=== PATIENT | male | born 1935 | race Caucasian/White ===

== ENCOUNTER → 2017-11-23 | Day surgery (SDC) | payer MEDICARE ==
[2017-11-09 10:33] LABS: BASOPHILS # (AUTO) 0.1 (0.0-0.1); BASOPHILS % 0.5 % (0.0-1.0); EOSINOPHILS # (AUTO) 0.3 (0.0-0.4); EOSINOPHILS % 2.7 % (0.0-6.0); HEMATOCRIT 45.4 % (38.2-49.6); HEMOGLOBIN 15.6 g/dL (14.0-18.0); LYMPHOCYTES % 31.4 % (18.0-39.1); MEAN CORPUSCULAR HEMOGLOBIN 29.3 pg (28-32); MEAN CORPUSCULAR HGB CONC 34.4 g/dL (31-35); MEAN CORPUSCULAR VOLUME 85.3 fL (81-99); MONOCYTES # (AUTO) 0.7 (0.2-0.8); MONOCYTES % 7.6 % (4.4-11.3); NEUTROPHILS # (AUTO) 5.4 (2.1-6.9); NEUTROPHILS % 57.3 % (38.7-80.0); PLATELET COUNT 158 x10e3/uL (140-360); RED BLOOD COUNT 5.32 x10e6/uL (4.3-5.7); RED CELL DISTRIBUTION WIDTH 14.4 % (11.7-14.4)
--- NOTE | 2017-11-09 10:33 | Diagnostic Imaging Report ---
PROCEDURE: X-RAY CHEST, TWO VIEWS COMPARISON: None. INDICATIONS: PRE OPERATIVE FINGER SURGERY FINDINGS: LUNGS: No consolidations or edema. There is linear scarring in the left lung base. PLEURA: No effusions or pneumothorax. HEART \T\ MEDIASTINUM: The heart is within normal size-limits. Aortic calcification. BONES \T\ SOFT TISSUES: Mild degenerative changes of the spine. Mid thoracic spine compression deformity. CONCLUSION: No acute thoracic abnormality. Ortiz Tinoco D.O. Dictated by: Ortiz Tinoco D.O. on 11/09/2017 at 10:38 Electronically approved by: Ortiz Tinoco D.O. on 11/09/2017 at 10:38
[~2017-11-23] MED LIST: BUPIVACAINE HCL 0.5% 10ML MPF VIAL INJ ONE; CEFAZOLIN SOD 1 GM VIAL ONE; FENTANYL CITRATE/PF 100MCG/2 ML INJ ONE; FLOMAX0.4 MG PO; LIDOCAINE 1% W/EPINEPHRINE 20 ML VIAL ONE; METOPROLOL TART25 MG PO; MIDAZOLAM HCL 2 MG/2 ML VIAL ONE; PLAVIX75 MG PO
--- NOTE | 2017-11-23 11:46 | Operative Report ---
DATE OF PROCEDURE: November 23, 2017 PREOPERATIVE DIAGNOSIS: Mohs defect/squamous cell carcinoma, left ring finger. POSTOPERATIVE DIAGNOSIS: Mohs defect/squamous cell carcinoma, left ring finger. PROCEDURE: Full-thickness skin grafting, left ring finger, 15 cm squared. ANESTHESIA: MAC/local. HISTORY: The patient is a 70-year-old, [id number] male who underwent Mohs micrographic removal of a squamous cell carcinoma from the left ring finger yesterday. The resultant defect measures 15 cm squared. It is down to the extensor tenosynovium on the dorsum of the finger. The risks, benefits and alternatives of treatment were discussed with the patient and family. He is prepared to undergo the procedures outlined. DETAILS OF PROCEDURE: Patient was marked preoperatively in the holding area. He was brought to the operating theater. After the induction of adequate IV sedation, he was prepped and draped in a supine position, and a time out was performed. The procedure was begun by placing a digital block at the base of the left ring finger using 0.5% plain Marcaine. In addition, the left medial epicondylar area was injected with approximately 20 mL of 1% Xylocaine with epinephrine. A template was s made of the defect on the ring finger. It was then transferred on the medial epicondylar area. The skin was then harvested in a full-thickness fashion, and the wound bed was made hemostatic using electrocautery. The skin flaps were undermined and then closed in layers using 4-0 Vicryl in interrupted fashion followed by 5-0 nylon in interrupted horizontal mattress fashion. At this point, the full-thickness skin graft was thinned to the dermal layer and then placed on the defect on the ring finger. It was secured in place using 5-0 chromic sutures in an interrupted fashion. At this point, 4-0 silk sutures were placed circumferentially around the graft on the finger. Xeroform gauze, Bactroban ointment, and then cotton balls were used as a bolster-type dressing. The 4-0 silk sutures were then tied over the bolster to hold the graft in place. A dressing was applied over the left ring finger as well. The incision over the donor site was lubricated with Bactroban ointment and then a sterile dressing. Estimated blood loss for the procedure was less than 15 mL. He tolerated the procedure well and was brought to the recovery room in satisfactory condition and discharged with a postoperative instruction sheet as well as a followup appointment. Job#: [id number] VINNIE
== END | disposition home or self-care (01) ==
LOC: OR 06:26
PROVIDERS: ATTEND Plastic Surgery
DX: Z48.3 Aftercare following surgery for neoplasm (principal); Z85.828 Personal history of other malignant neoplasm of skin; I25.10 Atherosclerotic heart disease of native coronary artery without angina pectoris; I25.2 Old myocardial infarction; I10 Essential (primary) hypertension; I48.91 Unspecified atrial fibrillation; N20.0 Calculus of kidney; Z88.6 Allergy status to analgesic agent; Z88.2 Allergy status to sulfonamides; Z01.810 Encounter for preprocedural cardiovascular examination; Z01.812 Encounter for preprocedural laboratory examination; Z01.818 Encounter for other preprocedural examination; Z79.02 Long term (current) use of antithrombotics/antiplatelets; Z96.653 Presence of artificial knee joint, bilateral; Z95.5 Presence of coronary angioplasty implant and graft
CPT/HCPCS: 15240; 36415; 71046; 85025; 93005; J0690; J2250